=== PATIENT | female | born 1960 | race Caucasian/White ===

== ENCOUNTER 2022-06-12 05:40 | Inpatient (IN) | payer BC, OTHER ==
[2022-06-03 15:50] LABS: BASOPHILS # (AUTO) 0.1 X10'3 (0-0.2); BASOPHILS % (AUTO) 0.8 % (0-1); EOSINOPHILS # (AUTO) 0.2 X10'3 (0-0.9); EOSINOPHILS % (AUTO) 2.6 % (0-6); LYMPHOCYTES # (AUTO) 2.6 X10'3 (1.1-4.8); LYMPHOCYTES % (AUTO) 34.5 % (21-51); MEAN CORPUSCULAR HEMOGLOBIN 32.5 PG (27.0-31.0); MEAN CORPUSCULAR HGB CONC 34.1 g/dL (33.0-36.5); MEAN CORPUSCULAR VOLUME 95.2 FL (78-98); MEAN PLATELET VOLUME 7.5 FL (7.4-10.4); MONOCYTES # (AUTO) 0.8 X10'3 (0-0.9); MONOCYTES % (AUTO) 10.4 % (2-12); NEUTROPHILS # (AUTO) 3.9 X10'3 (1.8-7.7); NEUTROPHILS % (AUTO) 51.7 % (42-75); PRE OP HEMATOCRIT 42.4 % (35.0-45.0); PRE OP HEMOGLOBIN 14.5 g/dL (12.0-16.0); PRE OP PLATELET COUNT 319 X10'3 (140-440); RED BLOOD COUNT 4.46 X10'6 (4.20-5.60); RED CELL DISTRIBUTION WIDTH 13.4 % (11.5-14.5)
[2022-06-03 16:09] LABS: ALBUMIN 4.3 G/DL (3.4-5.0); ALBUMIN/GLOBULIN RATIO 1.1 (1.1-1.5); ALKALINE PHOSPHATASE 85 IU/L (46-116); BLOOD UREA NITROGEN 16 MG/DL (7-18); BUN/CREATININE RATIO 15.7 (6.6-38.0); CALCIUM 9.1 MG/DL (8.5-10.1); CHLORIDE 103 MMOL/L (99-107); CREATININE 1.02 MG/DL (0.40-0.90); PRE OP ALT 17 U/L (30-65); PRE OP ANION GAP 10 (8-16); PRE OP AST 18 U/L (10-37); PRE OP BILIRUB, TOTAL 0.3 MG/DL (0.0-1.0); PRE OP GLUCOSE 84 MG/DL (70-104); PRE OP SODIUM 142 MMOL/L (135-145); TOTAL CARBON DIOXIDE 29.1 MMOL/L (24-32); TOTAL PROTEIN 8.1 G/DL (6.4-8.2); eGFR 55 ML/MIN
[2022-06-12] VITALS (20 sets, daily range): BP systolic 90–160; BP diastolic 52–98
[~2022-06-12] VITALS: Ht 157.5 cm; Wt 110.1 kg
[~2022-06-12 05:40] MED LIST: ARIP5TAB14 PO; BUPR300T53 PO; CELE-193 PO; CETI-90 PO; CYCL-394 PO; DOCU100C40 PO; ESCI20TA PO; GABA300C PO; OLME20TA14 PO; PHEN30CA21 PO; PSEU-303 PO; TRAM50TA2 PO; TRIA1TAB5 PO; ceFAZolin inj. 2,000 MG in dextrose 5%-water 100 ML IV ONE; famotidine 20mg tablet PO ONE; ringers solution, lacted 1,000 ML IV SCH; tranexamic acid inj. 1,000 MG in 0.7% saline 100 ML PMX IV ONE; vancomycin 1,500 MG in NS 300ml IV soln IV ONE
[2022-06-12] MEDS ORDERED: epiNEPHrine 1 mg/ml inj ONE (07:14)
[2022-06-12] MEDS ORDERED: vancomycin 1,000mg inj ONE (07:14)
[2022-06-12] MEDS ORDERED: ketorolac trometh. 30mg/ml inj. ONE (07:14)
[2022-06-12] MEDS ORDERED: morphine 10mg/ml inj. ONE (07:14)
[2022-06-12] MEDS ORDERED: ROPIVAcaine 0.5% (5mg/ml) 30ml vial ONE ×2 (07:14→07:24)
[2022-06-12] MEDS ORDERED: tetracaine 1% (10mg/ml) pres. free inj. ONE (07:24)
[2022-06-12] MEDS ORDERED: fentaNYL/PF 50MCG/1 ML 2ML syringe ONE (07:28)
[2022-06-12] MEDS ORDERED: MIDAZolam 1mg/ml 10ml vial ONE (07:28)
[2022-06-12] MEDS ORDERED: ePHEDrine 50MG/ML INJ. ONE (08:25)
[2022-06-12] MEDS ORDERED: propofol inj 20 ML IV ONE ×2 (08:25)
[2022-06-12] MEDS ORDERED: ringers solution, lacted 1,000 ML IV SCH (08:50)
[2022-06-12] MEDS ORDERED: ROPIVAcaine 0.2% (10 MG/5 ML) BOLUS INJECTION ADDCANAL PRN (08:50)
[2022-06-12] MEDS ORDERED: morphine 4 MG/ML inj SYRINge IV PRN (08:50)
[2022-06-12] MEDS ORDERED: ondansetron/PF 4mg/2ml inj IV PRN ×2 (08:50→11:40)
[2022-06-12] MEDS ORDERED: ROPIVAcaine 0.2%/PF PUMP/bolus 545 ML ADDCANAL SCH (08:50)
[2022-06-12] MEDS ORDERED: meperidine/PF 25mg/ml syringe IV PRN ×2 (08:50)
[2022-06-12] MEDS ORDERED: proCHLORperazine 10 MG/2 ml inj IV PRN (08:50)
[2022-06-12] MEDS ORDERED: morphine 2 MG/ML inj. syringe IV PRN (08:50)
--- NOTE | 2022-06-12 11:35 | NUR ---
Received from OR via ORTHO BED WITH MESARAH , accompanied by Anesthesiologist RHONDA and report given by Anesthesiolgist. PATIENT WITH 20G PIV IN RIGHT HAND RUNNING LR AT 100. DENIES PAIN SCDS DONNED. PATIENT WITH KNEE IMMOBVILIZER PRESENT TO LEFT KNEE. ONQ NERVE BLOCK SITE PRESNET OT LEFT THIGH AREA AND ATTACHED UPON ARRIVAL FROM THE OR. PATIENT WITH +DP PRESENT TO LEFT FOOT.PATIENT WITH NO C.O. PAIN AND SENSATION LEVEL AT L2 2' SPINAL ANESTHESIA. Addendum: 06/12/22 at 1142 by Robert Gonzáles RN, RN Amended: Links added.
[2022-06-12] MEDS ORDERED: HYDROmorphone inj. 0.5 MG/0.5 ML DISP.SYRIN IV PRN (11:40)
[2022-06-12] MEDS ORDERED: magnesium hydroxide 30ml (MOM) UD suspension PO PRN (11:40)
[2022-06-12] MEDS ORDERED: bisacodyl 10mg suppository rectal RC PRN (11:40)
[2022-06-12] MEDS ORDERED: naloxone 0.4 mg/ml inj IV PRN (11:40)
[2022-06-12] MEDS ORDERED: diphenhydrAMINE 25mg capsule PO PRN ×2 (11:40)
[2022-06-12] MEDS ORDERED: acetaminophen 325mg tablet PO PRN (11:40)
[2022-06-12] MEDS ORDERED: HYDROmorphone 1 mg/ml syringe IV PRN (11:40)
[2022-06-12] MEDS ORDERED: oxyCODONE IR 5mg (immed. release) tablet PO PRN ×2 (11:40)
[2022-06-12] MEDS: meperidine/PF 25mg/ml syringe IV PRN ×2 (11:48→12:42)
--- NOTE | 2022-06-12 12:32 | NUR ---
CSM: PEDAL PULSES PRESENT AND MARKED. PATIENT WATCHED VIDEO AND USED THE MUPIROCIN CREAM. EDUCATED PATIENT ON THE USE OF THE INCENTIVE SPIROMETER AND ITS IMPORTANCE.
--- NOTE | 2022-06-12 13:05 | NUR ---
CARE OF PATIENT AND REPORT HAS BEEN CALLED. ALL QUESTIONS ANSWERED TO ACCEPTING RN. PATIENT HAS MET ALL CRITERIA FOR TRANSFER TO THE ORTHO FLOOR. VSS. DRESSINGS INTACT. BED LOW, CALL LIGHT PRESENT AND 2 RAILS UP. SARI WEST AWARE WE HAVE ARRIVED BUT WAS BUSY WITH ANOTHER PATIENT UPON DROP OFF AND SET UP. PATIENT VSS. STATES PAIN IS 5/10 BUT THAT HER PAIN WAS TOLERABLE. STATES THAT " IT'S A LOT BETTER THAN I'VE BEEN LIVING WITH". PATIENT STATES SHE IS COMFORTABLE. CARE TURNED OVER. Addendum: 06/12/22 at 1312 by Robert Gonzáles RN, RN Amended: Links added.
[2022-06-12] MEDS: potassium cl 20mEq in 1/2 NS 1,000 ML IV SCH ×2 (13:19→20:18)
[2022-06-12] MEDS: gabapentin 300mg capsule PO SCH ×2 (14:38→20:17)
[2022-06-12] MEDS: acetaminophen 325mg tablet PO SCH ×2 (14:38→20:17)
[2022-06-12] MEDS ORDERED: tranexamic acid inj. 1,000 MG in normal saline 100ml IV soln 90 ML IV ONE (15:00)
[2022-06-12] MEDS: ceFAZolin/D5W- 1GM premix 50 ML IV SCH (17:36)
--- NOTE | 2022-06-12 18:35 | NUR ---
Problems reprioritized. Patient report given, questions answered & plan of care reviewed with SARI Burciaga.
--- NOTE | 2022-06-12 18:47 | NUR ---
Patient in room [facility]TH[facility] 4023. I have received report from MARK GUO and had the opportunity to ask questions and assume patient care.
[2022-06-12] MEDS ORDERED: vancomycin/NS 1 GM ADD-VANTAGE 250 ML IV SCH (20:00)
[2022-06-12] MEDS: sennosides 8.6mg tablet PO SCH (20:17)
[2022-06-13] MEDS: ceFAZolin/D5W- 1GM premix 50 ML IV SCH (00:11)
[2022-06-13] MEDS: acetaminophen 325mg tablet PO SCH ×4 (02:06→20:53)
[2022-06-13] MEDS: potassium cl 20mEq in 1/2 NS 1,000 ML IV SCH ×3 (04:30→19:40)
[2022-06-13 06:00] VITALS: BP 137/68
--- NOTE | 2022-06-13 06:24 | NUR ---
Problems reprioritized. Patient report given, questions answered & plan of care reviewed with MARK GUO.
[2022-06-13] MEDS: gabapentin 300mg capsule PO SCH ×3 (07:16→20:52)
[2022-06-13] MEDS: enoxaparin 40mg/0.4ml syringe SQ SCH (07:17)
--- NOTE | 2022-06-13 07:24 | NUR ---
FC dc'd without incident.
[2022-06-13 10:00] VITALS: BP 134/75
[2022-06-13] MEDS ORDERED: aripiprazole 5mg tablet PO ONE (10:22)
[2022-06-13] MEDS ORDERED: cetirizine 10mg tablet PO ONE (10:22)
--- NOTE | 2022-06-13 10:36 | NUR ---
Joint Surgery Consult: Pt s/p L knee surgery this admit per EMR. Pt seen by RD for written/verbal high protein diet ed w/ RD contact information provided. Pt reports will have ensure or boost once daily in addition to meals given good appetite post-op. RD encouraged pt to contact dietitian's office if further questions/concerns. Addendum: 06/13/22 at [address] Amended: Links added.
[2022-06-13] MEDS ORDERED: triamterene/HCTZ 37.5/25mg tablet PO ONE (10:45)
[2022-06-13] MEDS ORDERED: ketorolac trometh. 30mg/ml inj. IV ONE (10:50)
[2022-06-13 12:10] LABS: BASOPHILS % (AUTO) 0.7 % (0-1); EOSINOPHILS # (AUTO) 0.1 X10'3 (0-0.9); EOSINOPHILS % (AUTO) 1.4 % (0-6); HEMATOCRIT 35.5 % (35.0-45.0); HEMOGLOBIN 12.3 g/dl (12.0-16.0); LYMPHOCYTES % (AUTO) 29.4 % (21-51); MEAN CORPUSCULAR HEMOGLOBIN 32.6 PG (27.0-31.0); MEAN CORPUSCULAR HGB CONC 34.7 g/dL (33.0-36.5); MEAN CORPUSCULAR VOLUME 93.8 FL (78-98); MEAN PLATELET VOLUME 7.4 FL (7.4-10.4); MONOCYTES % (AUTO) 15.6 % (2-12); NEUTROPHILS # (AUTO) 3.6 X10'3 (1.8-7.7); NEUTROPHILS % (AUTO) 52.9 % (42-75); PLATELET COUNT 276 X10'3 (140-440); RED BLOOD COUNT 3.79 X10'6 (4.20-5.60); RED CELL DISTRIBUTION WIDTH 13.3 % (11.5-14.5); WHITE BLOOD COUNT 6.7 X10'3 (4.5-11.0)
[2022-06-13 12:19] LABS: ALBUMIN 3.2 G/DL (3.4-5.0); ANION GAP 10 (8-16); BLOOD UREA NITROGEN 14 MG/DL (7-18); BUN/CREATININE RATIO 20.9 (6.6-38.0); CALCIUM 8.3 MG/DL (8.5-10.1); CHLORIDE 99 MMOL/L (99-107); CREATININE 0.67 MG/DL (0.40-0.90); GLUCOSE 100 MG/DL (70-104); POTASSIUM 3.4 MMOL/L (3.5-5.1); SODIUM 135 MMOL/L (135-145); TOTAL CARBON DIOXIDE 26.4 MMOL/L (24-32); eGFR 90 ML/MIN
[2022-06-13 13:01] LABS: PLATELET ESTIMATE NORMAL; TOTAL CELLS COUNTED 100
[2022-06-13 13:55] VITALS: BP 110/58
[2022-06-13] MEDS: ketorolac tromethamine 15mg/ml inj. IV SCH ×2 (16:21→20:55)
[2022-06-13 18:00] VITALS: BP 167/54
--- NOTE | 2022-06-13 18:31 | NUR ---
Problems reprioritized. Patient report given, questions answered & plan of care reviewed with SARI Burciaga.
[2022-06-13] MEDS: sennosides 8.6mg tablet PO SCH (20:52)
[2022-06-13] MEDS: celeCOXIB 100mg capsule PO SCH (20:53)
[2022-06-13] MEDS: pseudoephedrine 30mg tablet PO SCH (20:53)
[2022-06-13] MEDS ORDERED: cyclobenzaprine 10mg tablet PO SCH (21:00)
[2022-06-13 22:00] VITALS: BP 117/70
[2022-06-14] MEDS: ketorolac tromethamine 15mg/ml inj. IV SCH ×2 (02:44→08:11)
[2022-06-14] MEDS: acetaminophen 325mg tablet PO SCH ×2 (02:45→08:12)
[2022-06-14] MEDS: potassium cl 20mEq in 1/2 NS 1,000 ML IV SCH (03:40)
[2022-06-14 06:00] VITALS: BP 154/77
--- NOTE | 2022-06-14 06:37 | NUR ---
Problems reprioritized. Patient report given, questions answered & plan of care reviewed with MIAN GUO.
[2022-06-14] MEDS ORDERED: cetirizine 10mg tablet PO SCH (08:00)
[2022-06-14] MEDS ORDERED: triamterene/HCTZ 37.5/25mg tablet PO SCH (08:00)
[2022-06-14] MEDS ORDERED: ESCITALOPRAM OXALATE 5 MG TABLET PO SCH (08:00)
[2022-06-14] MEDS ORDERED: aripiprazole 5mg tablet PO SCH (08:00)
[2022-06-14] MEDS: celeCOXIB 100mg capsule PO SCH (08:00)
[2022-06-14] MEDS ORDERED: buPROPion SR 150mg tablet PO SCH (08:00)
[2022-06-14] MEDS ORDERED: PHENTERMINE HCL 30 MG PO SCH (08:00)
[2022-06-14] MEDS: gabapentin 300mg capsule PO SCH (08:12)
[2022-06-14] MEDS: pseudoephedrine 30mg tablet PO SCH (08:12)
[2022-06-14] MEDS: enoxaparin 40mg/0.4ml syringe SQ SCH (08:15)
[2022-06-14 10:00] VITALS: BP 143/73
[2022-06-14] MEDS ORDERED: acetaminophen 325mg tablet PO PRN (11:40)
== END 2022-06-14 10:55 | disposition home or self-care (01) | DRG 470 ==
LOC: PAS IN 05:40 → ORTHO 4S 13:00
PROVIDERS: ADMIT Orthopaedic Surgery; ATTEND Orthopaedic Surgery
PROC: 0SRD0J9 Replacement of Left Knee Joint with Synthetic Substitute, Cemented, Open Approach (ICD-10-PCS; principal; 2022-06-12 07:41)
DX: M17.12 Unilateral primary osteoarthritis, left knee (principal)
CPT/HCPCS: Z7506; Z7508; 36415; 73560; 80048; 80053; 82948; 85007; 85025; 87081; 87811; 93005; 97110; 97116; 97162; 97530; A4215; A4615; A4620; A6258; A7000; C1713; C1758; C1776; C9250; G0378; J0171; J0690; J1650; J1885; J2175; J2250; J2274; J2704; J2795; J3010; J3370; J3480; J3490; J7040; J7060; J7120

== ENCOUNTER 2022-12-11 05:35 | Day surgery (SDC) | payer BC, OTHER ==
[2022-12-04 12:53] LABS: BASOPHILS # (AUTO) 0.1 X10'3 (0-0.2); EOSINOPHILS # (AUTO) 0.1 X10'3 (0-0.9); EOSINOPHILS % (AUTO) 2.3 % (0-6); LYMPHOCYTES # (AUTO) 2.1 X10'3 (1.1-4.8); LYMPHOCYTES % (AUTO) 34.8 % (21-51); MEAN CORPUSCULAR HEMOGLOBIN 31.6 PG (27.0-31.0); MEAN CORPUSCULAR HGB CONC 33.1 g/dL (33.0-36.5); MEAN CORPUSCULAR VOLUME 95.4 FL (78-98); MEAN PLATELET VOLUME 7.7 FL (7.4-10.4); MONOCYTES # (AUTO) 0.6 X10'3 (0-0.9); MONOCYTES % (AUTO) 10.4 % (2-12); NEUTROPHILS # (AUTO) 3.1 X10'3 (1.8-7.7); NEUTROPHILS % (AUTO) 51.5 % (42-75); PRE OP HEMATOCRIT 40.8 % (35.0-45.0); PRE OP HEMOGLOBIN 13.5 g/dL (12.0-16.0); PRE OP PLATELET COUNT 330 X10'3 (140-440); RED BLOOD COUNT 4.28 X10'6 (4.20-5.60); RED CELL DISTRIBUTION WIDTH 13.3 % (11.5-14.5)
[2022-12-04 13:10] LABS: ALBUMIN/GLOBULIN RATIO 1.2 (1.1-1.5); ALKALINE PHOSPHATASE 90 IU/L (46-116); BLOOD UREA NITROGEN 21 MG/DL (7-18); BUN/CREATININE RATIO 21.6 (6.6-38.0); CALCIUM 8.9 MG/DL (8.5-10.1); CHLORIDE 103 MMOL/L (99-107); CREATININE 0.97 MG/DL (0.40-0.90); PRE OP ALT 19 U/L (30-65); PRE OP ANION GAP 6 (8-16); PRE OP AST 24 U/L (10-37); PRE OP BILIRUB, TOTAL 0.3 MG/DL (0.0-1.0); PRE OP GLUCOSE 85 MG/DL (70-104); PRE OP POTASSIUM 3.9 MMOL/L (3.4-5.1); PRE OP SODIUM 137 MMOL/L (135-145); TOTAL CARBON DIOXIDE 27.8 MMOL/L (24-32); TOTAL PROTEIN 7.4 G/DL (6.4-8.2); eGFR 59 ML/MIN
[~2022-12-11] VITALS: Ht 157.5 cm; Wt 122.1 kg
[2022-12-11] VITALS (17 sets, daily range): BP systolic 120–151; BP diastolic 69–87
--- NOTE | 2022-12-11 05:30 | NUR ---
CSM: PEDAL PULSES PRESENT AND MARKED. PATIENT DID USE MUPIROCIN CREAM AND STATED NO NEED TO WATCH THE VIDEO. SHE HAS HAD A L TKA. EDUCATED PATIENT ON THE USE OF THE INCENTIVE SPIROMETER AND ITS IMPORTANCE.
[~2022-12-11 05:35] MED LIST changes: -OLME20TA14 PO; +OLME20TA74 PO; -PHEN30CA21 PO; -TRAM50TA2 PO; -ringers solution, lacted 1,000 ML IV SCH; -tranexamic acid inj. 1,000 MG in 0.7% saline 100 ML PMX IV ONE; +tranexamic acid inj. 1,000 MG in normal saline IV soln 100ML IV ONE
[2022-12-11] MEDS: ringers solution, lacted 1,000 ML IV SCH ×3 (06:05→22:47)
[2022-12-11] MEDS ORDERED: morphine /PF 1mg/ml 10ml inj. ONE (06:58)
[2022-12-11] MEDS ORDERED: vancomycin 1,000mg inj ONE (06:58)
[2022-12-11] MEDS ORDERED: epiNEPHrine 1 mg/ml inj ONE (06:58)
[2022-12-11] MEDS ORDERED: ROPIVAcaine 0.5% (5mg/ml) 30ml vial ONE ×2 (06:58→11:05)
[2022-12-11] MEDS ORDERED: morphine 10mg/ml inj. ONE (07:06)
[2022-12-11] MEDS ORDERED: tetracaine 1% (10mg/ml) pres. free inj. ONE (08:41)
[2022-12-11] MEDS ORDERED: fentaNYL/PF 50MCG/1 ML 2ML syringe ONE (08:43)
[2022-12-11] MEDS ORDERED: MIDAZolam 1 MG/ML 5ML VIAL ONE (08:43)
[2022-12-11] MEDS ORDERED: PHENYLephrine 10mg/ml 5ml injection IV ONE (08:45)
[2022-12-11] MEDS ORDERED: neostigmine methylsulfate 1 MG/ML 10ml vial ONE (08:45)
[2022-12-11] MEDS ORDERED: glycopyrrolate 0.2mg/ml inj ONE (08:45)
[2022-12-11] MEDS ORDERED: sevoflurane 250ml liquid IH ONE (08:45)
[2022-12-11] MEDS ORDERED: fentaNYL /PF 50mcg/ml 5ml ampule ONE (09:14)
[2022-12-11] MEDS ORDERED: ondansetron/PF 4mg/2ml inj IV PRN ×2 (09:35→12:45)
[2022-12-11] MEDS ORDERED: morphine 4 MG/ML inj SYRINge IV PRN (09:35)
[2022-12-11] MEDS ORDERED: ROPIVAcaine 0.2%/PF PUMP/bolus 545 ML ADDCANAL SCH (09:35)
[2022-12-11] MEDS ORDERED: morphine 2 MG/ML inj. syringe IV PRN (09:35)
[2022-12-11] MEDS ORDERED: meperidine/PF 25mg/ml syringe IV PRN ×3 (09:35)
[2022-12-11] MEDS ORDERED: ROPIVAcaine 0.2% (10 MG/5 ML) BOLUS INJECTION ADDCANAL PRN (09:35)
[2022-12-11] MEDS ORDERED: proCHLORperazine 10 MG/2 ml inj IV PRN (09:35)
[2022-12-11] MEDS ORDERED: ringers solution, lacted 1,000 ML IV SCH (09:35)
[2022-12-11] MEDS ORDERED: acetaminophen 1,000mg/100ml IV 100 ML IV ONE (10:34)
[2022-12-11] MEDS ORDERED: LIDOcaine 1%/PF 5ML 10 MG/ML VIAL ONE (10:34)
[2022-12-11] MEDS ORDERED: ondansetron/PF 4mg/2ml inj ONE (10:34)
[2022-12-11] MEDS ORDERED: dexamethasone sod phosphate 4mg/ml inj. ONE (10:34)
[2022-12-11] MEDS ORDERED: rocuronium 10mg/ml inj IV ONE (10:34)
[2022-12-11] MEDS ORDERED: propofol inj 20 ML IV ONE (10:34)
--- NOTE | 2022-12-11 12:20 | NUR ---
Received from OR via BED , accompanied by Anesthesiologist DR MAGDALENO and report given by Anesthesiologist. PT DROWSY, AWAKE. VSS. RIGHT PEDAL PULSE STRONG, ABLE TO MOVE FOOT/TOES FREELY. RIGHT KNEE DSG C/D/I WITH KNEE BRACE AND ICE PRESENT. SCD'S TO LEFT LE. IV PATENT #20 LEFT HAND ON PUMP. F/C TO GRAVITY DRAINAGE WITH 200MLS CLEAR YELLOW URINE PRESENT. Addendum: 12/11/22 at 1242 by Kimberly Gutierres RN Amended: Links added.
[2022-12-11] MEDS ORDERED: acetaminophen 325mg tablet PO PRN (12:45)
[2022-12-11] MEDS ORDERED: diphenhydrAMINE 25mg capsule PO PRN ×2 (12:45)
[2022-12-11] MEDS ORDERED: naloxone 0.4 mg/ml inj IV PRN (12:45)
[2022-12-11] MEDS ORDERED: magnesium hydroxide 30ml (MOM) UD suspension PO PRN (12:45)
[2022-12-11] MEDS ORDERED: bisacodyl 10mg suppository rectal RC PRN (12:45)
--- NOTE | 2022-12-11 13:50 | NUR ---
VSS, ALERT AND ORIENTED. STATES ADEQUATE PAIN RELIEF WITH ON-Q. IV PATENT. RIGHT KNEE DSG C/D/I WITH ICE PRESENT. CSM'S WNL. PEDAL PULSE STRONG. REPORT GIVEN TO TOMAS GUO WITH ALL QUESTIONS ANSWERED. TOMAS AWARE OF 'S REQUEST TO IMMOBILIZE RIGHT KNEE WITH BRACE FOR 24HRS THEN MAY START PT. TRANSFERRED TO [facility] VIA BED IN CARE OF TOMAS GUO. Addendum: 12/11/22 at 1357 by Kimberly Gutierres RN Amended: Links added.
--- NOTE | 2022-12-11 14:00 | NUR ---
Patient in room [facility] 340. I have received report from ONESIMO GUO and had the opportunity to ask questions and assume patient care.
[2022-12-11] MEDS ORDERED: HYDROmorphone inj. 0.5 MG/0.5 ML DISP.SYRIN IV PRN (16:50)
[2022-12-11] MEDS ORDERED: oxyCODONE IR 5mg (immed. release) tablet PO PRN ×2 (16:50)
[2022-12-11] MEDS ORDERED: HYDROcodone/acetaminophen 10/325mg tab PO PRN ×2 (16:50)
--- NOTE | 2022-12-11 18:24 | NUR ---
Problems reprioritized. Patient report given, questions answered & plan of care reviewed with BENNY GUO.
[2022-12-11] MEDS ORDERED: vancomycin/NS 1 GM ADD-VANTAGE 250 ML IV SCH (20:00)
[2022-12-11] MEDS ORDERED: docusate sod 100mg capsule PO SCH (21:00)
[2022-12-11] MEDS ORDERED: cyclobenzaprine 10mg tablet PO SCH (21:00)
[2022-12-11] MEDS ORDERED: sennosides 8.6mg tablet PO SCH (21:00)
[2022-12-11] MEDS ORDERED: buPROPion SR 150mg tablet PO SCH (21:00)
[2022-12-11] MEDS ORDERED: losartan 50mg tablet PO SCH (21:00)
[2022-12-11] MEDS: ketorolac tromethamine 15mg/ml inj. IV SCH (21:02)
[2022-12-11] MEDS: gabapentin 300mg capsule PO SCH (21:03)
[2022-12-11] MEDS: celeCOXIB 100mg capsule PO SCH (21:04)
[2022-12-12] VITALS: BP 105/63
[2022-12-12 02:00] VITALS: BP 146/84
[2022-12-12] MEDS: ketorolac tromethamine 15mg/ml inj. IV SCH ×2 (02:00→08:10)
--- NOTE | 2022-12-12 04:56 | NUR ---
Pt. is awake alert oriented s/p right knee procedure. Pt. has a Q Ball for pain; in addition, relief medicated for pain x1 overnight with Toradol tolerated well. Right knee dressing intact with ice pack, right foot pedal pulse palpable. Jaquez with yellow clear urine large amt. Takes po fluids well. IV LR at 20 ml/hr infusing well. Antibiotics given. Plan: Remove Jaquez in am. Pt. to walk with PT.
[2022-12-12 05:54] LABS: BASOPHILS % (AUTO) 0.3 % (0-1); EOSINOPHILS % (AUTO) 0 % (0-6); HEMATOCRIT 33.2 % (35.0-45.0); HEMOGLOBIN 11.4 g/dl (12.0-16.0); LYMPHOCYTES # (AUTO) 1.5 X10'3 (1.1-4.8); LYMPHOCYTES % (AUTO) 14.4 % (21-51); MEAN CORPUSCULAR HEMOGLOBIN 32.9 PG (27.0-31.0); MEAN CORPUSCULAR HGB CONC 34.2 g/dL (33.0-36.5); MEAN CORPUSCULAR VOLUME 96.2 FL (78-98); MEAN PLATELET VOLUME 7.3 FL (7.4-10.4); MONOCYTES # (AUTO) 1.3 X10'3 (0-0.9); MONOCYTES % (AUTO) 12.3 % (2-12); NEUTROPHILS # (AUTO) 7.5 X10'3 (1.8-7.7); PLATELET COUNT 277 X10'3 (140-440); RED BLOOD COUNT 3.45 X10'6 (4.20-5.60); RED CELL DISTRIBUTION WIDTH 14.1 % (11.5-14.5); WHITE BLOOD COUNT 10.3 X10'3 (4.5-11.0)
[2022-12-12 06:00] VITALS: BP 107/61
[2022-12-12 06:02] LABS: ANION GAP 9 (8-16); CHLORIDE 103 MMOL/L (99-107); POTASSIUM 3.4 MMOL/L (3.5-5.1); SODIUM 138 MMOL/L (135-145); TOTAL CARBON DIOXIDE 26.2 MMOL/L (24-32)
--- NOTE | 2022-12-12 06:38 | NUR ---
Patient in room [facility] 340. I have received report from SARI Brito and had the opportunity to ask questions and assume patient care.
[2022-12-12] MEDS ORDERED: ESCITALOPRAM OXALATE 5 MG TABLET PO SCH (08:00)
[2022-12-12] MEDS ORDERED: aripiprazole 5mg tablet PO SCH (08:00)
[2022-12-12] MEDS ORDERED: cetirizine 10mg tablet PO SCH (08:00)
[2022-12-12] MEDS ORDERED: triamterene/HCTZ 37.5/25mg tablet PO SCH (08:00)
[2022-12-12] MEDS ORDERED: enoxaparin 40mg/0.4ml syringe SQ SCH (08:00)
[2022-12-12] MEDS: ceFAZolin/D5W- 1GM premix 50 ML IV SCH ×2 (08:10)
[2022-12-12] MEDS: celeCOXIB 100mg capsule PO SCH (08:12)
[2022-12-12] MEDS: gabapentin 300mg capsule PO SCH ×2 (08:12→13:48)
[2022-12-12 10:00] VITALS: BP 91/52
--- NOTE | 2022-12-12 10:34 | NUR ---
Joint surgery consult: Pt s/p R knee surgery this admit per EMR. Pt seen by JAH for written/verbal high protein diet ed w/ RD contact information provided. JAH encouraged pt to contact dietitian's office if further nutrition questions/concerns. Addendum: 12/12/22 at [address] Amended: Links added.
--- NOTE | 2022-12-12 14:53 | NUR ---
Patient was discharged with instructions and verbalizing understanding of instructions, in wheelchair accompanied by nursing staff and family going home via private vehicle. All lines and tubes including PIV with cannula intact have been removed. Patient education has been provided at bedside and all questions have been answered. Patient is stable and appropriate for discharge.
== END 2022-12-12 14:31 | disposition home or self-care (01) ==
LOC: PAS 05:35 → EDSTATUS 08:30 → UNDOADMIN 12:46 → SUR 3N 12:46 → PAS 12-12 14:31
PROVIDERS: ATTEND Orthopaedic Surgery
DX: M17.11 Unilateral primary osteoarthritis, right knee (principal); F32.A Depression, unspecified; I10 Essential (primary) hypertension; E66.01 Morbid (severe) obesity due to excess calories; Z68.42 Body mass index [BMI] 45.0-49.9, adult; G89.18 Other acute postprocedural pain; Z98.890 Other specified postprocedural states; Z79.899 Other long term (current) drug therapy
CPT/HCPCS: 27447; 36415; 64448; 80051; 80053; 82948; 85025; 87081; 93005; 97116; 97162; C1713; C1758; C1776; J0131; J0171; J0690; J1100; J1650; J1885; J2250; J2274; J2370; J2405; J2704; J2710; J2795; J3010; J3370; J3490; J7030; J7040; J7060; J7120; Z7506; Z7508; Z7512; 97530; A4215; A4615; A6253; A6446; A6449; A7000; G0378

== ENCOUNTER 2022-12-24 15:16 | Outpatient (CLI) | payer OTHER ==
[~2022-12-24 15:16] MED LIST changes: -ceFAZolin inj. 2,000 MG in dextrose 5%-water 100 ML IV ONE; -famotidine 20mg tablet PO ONE; -tranexamic acid inj. 1,000 MG in normal saline IV soln 100ML IV ONE; -vancomycin 1,500 MG in NS 300ml IV soln IV ONE
== END 2022-12-24 23:59 | disposition home or self-care (01) ==
LOC: VAS 15:16
PROVIDERS: ATTEND Orthopaedic Surgery
DX: M79.604 Pain in right leg (principal); Z96.651 Presence of right artificial knee joint
CPT/HCPCS: 93971